=== PATIENT | male | born 1990 | race Caucasian/White ===

== ENCOUNTER → 2024-01-27 09:18 | Outpatient (CLI) | payer OTHER, SELFPAY ==
--- NOTE | 2024-01-27 09:23 | DI.MRI.S_ITS ---
PROCEDURE: MR KNEE LT WO CON INDICATIONS: Pain in left knee TECHNIQUE: Noncontrast sagittal PD fast spin echo and T2 fast spin echo with fat saturation, sagittal 3-D FLASH with fat saturation; coronal T1 spin echo and PD fast spin echo with fat saturation, and axial PD fast spin echo with fat saturation through the knee. COMPARISON: None. FINDINGS: Image quality: Excellent. Anterior cruciate ligament: Intact. Posterior cruciate ligament: Intact. Medial collateral ligament: There is complete tearing of the distal medial collateral ligament with surrounding soft tissue edema and proximal displacement of torn ligament fibers. Lateral collateral ligament: Intact. Medial meniscus: Intact. Lateral meniscus: Intact. Medial and lateral tendons: The semimembranosus tendon insertions appear intact. Visualized portions of the pes anserinus tendons appear normal. The popliteus tendon is intact. Iliotibial band appears normal. Anterior structures: Mild patellar tendinosis. Small nonedematous ossification is seen adjacent to the inferior pole patella. Distal quadriceps tendon is intact. No patellar subluxation. No femoral trochlear dysplasia or ventral trochlear prominence. No edema in the infrapatellar fat pad. Bones and cartilage: No bone marrow contusions or fractures. Medial femorotibial cartilage: No focal cartilage defect. Lateral femorotibial cartilage: No focal cartilage defect. 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 Cartilage fissuring is seen at the medial patellar facet. Soft tissues: Moderate joint effusion. Small medial popliteal cyst. Subcutaneous edema is seen throughout the anterior medial knee. medial popliteal cyst. The musculature surrounding the knee is normal in bulk. IMPRESSION: 1. Complete tearing of the distal medial collateral ligament with proximal displacement of torn ligament fibers and surrounding soft tissue edema. 2. Cruciate ligaments are intact. No acute trabecular bone injury. No meniscal tear is seen. 3. 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 4. Moderate joint effusion. Small medial popliteal cyst. Approved by: Keith Bergman M.D. on 01/27/2024 at 13:42
== END ==
LOC: MRI 09:22
PROVIDERS: PCP Family Medicine; Referring Provider Orthopaedic Surgery; Visit Provider Orthopaedic Surgery
DX: S83.412A Sprain of medial collateral ligament of left knee, initial encounter (principal); M22.42 Chondromalacia patellae, left knee; M71.22 Synovial cyst of popliteal space [Baker], left knee; M25.462 Effusion, left knee; M25.562 Pain in left knee
CPT/HCPCS: 73721